=== PATIENT | female | born 1965 | race Caucasian/White ===

== ENCOUNTER 2020-07-19 07:53 | Day surgery (SDC) | payer OTHER, SELFPAY ==
[~2020-07-19] VITALS: Ht 167.6 cm; Wt 81.6 kg
[2020-07-19] MEDS ORDERED: fentaNYL citrate 0.05 MG/ML VIAL ONE (09:45)
[2020-07-19] MEDS ORDERED: MIDAZOLAM 5 MG/5 ML VIAL ONE (09:45)
[2020-07-19] MEDS ORDERED: diphenhydrAMINE 50 MG/ML VIAL ONE (09:45)
[2020-07-19] MEDS ORDERED: fentaNYL citrate 0.05 MG/ML VIAL IVP ONE (12:30)
[2020-07-19] MEDS ORDERED: MIDAZOLAM 2 MG/2 ML VIAL IVP ONE (12:30)
== END 2020-07-19 11:25 | disposition home or self-care (01) ==
LOC: MMU 07:53 → MOR 07:53
PROVIDERS: ATTEND Internal Medicine Gastroenterology
DX: Z12.11 Encounter for screening for malignant neoplasm of colon (principal); K63.5 Polyp of colon; K57.30 Diverticulosis of large intestine without perforation or abscess without bleeding; K21.9 Gastro-esophageal reflux disease without esophagitis; R10.13 Epigastric pain; Z20.828 Contact with and (suspected) exposure to other viral communicable diseases; Z79.899 Other long term (current) drug therapy
CPT/HCPCS: 43235; 45385; 88305; J2250; J3010; U0003; J1200